=== PATIENT | male | born 1990 | race African-American/Black ===

== ENCOUNTER 2017-06-05 23:48 | Emergency (ER) | payer OTHER ==
[~2017-06-05] VITALS: Ht 162.6 cm; Wt 82.4 kg
[~2017-06-05 23:48] MED LIST: NAPROSYN500 MG PO; NOHOMEMEDS; TYLENOL W/COD1 COMBO PO; ULTRAM50 MG PO
[2017-06-06] MEDS ORDERED: TOBREX5 ML RIGHT EYE (01:54)
[2017-06-06] MEDS ORDERED: ERYTHROMYC1 APPLICAT RIGHT EYE (01:54)
[2017-06-06 02:18] VITALS: BP 154/82
== END 2017-06-06 02:18 | disposition home or self-care (01) ==
LOC: EXP 23:48 → EME 23:48 → EXP 06-06 02:18
DX: S05.01XA Injury of conjunctiva and corneal abrasion without foreign body, right eye, initial encounter (principal); F17.200 Nicotine dependence, unspecified, uncomplicated
CPT/HCPCS: 99281; 99284

== ENCOUNTER 2017-09-04 14:50 | Emergency (ER) | payer OTHER ==
[~2017-09-04] VITALS: Ht 162.6 cm; Wt 82.1 kg
[~2017-09-04 14:50] MED LIST changes: +ERYTHROMYC1 APPLICAT RIGHT EYE; +TOBREX5 ML RIGHT EYE
[2017-09-04] MEDS ORDERED: ERYTHROMYC1 APPLICAT BOTH EYES (16:10)
[2017-09-04 16:23] VITALS: BP 138/84
== END 2017-09-04 16:24 | disposition home or self-care (01) ==
LOC: EME → EDBD 14:50 → EME 16:24
DX: S05.02XA Injury of conjunctiva and corneal abrasion without foreign body, left eye, initial encounter (principal); W22.8XXA Striking against or struck by other objects, initial encounter; Y99.0 Civilian activity done for income or pay
CPT/HCPCS: 99281; 99284

== ENCOUNTER 2018-04-18 21:49 | Emergency (ER) | payer OTHER ==
[~2018-04-18] VITALS: Ht 162.6 cm; Wt 80.3 kg
[~2018-04-18 21:49] MED LIST changes: +ERYTHROMYC1 APPLICAT BOTH EYES
[2018-04-18 22:33] LABS: HEMATOCRIT 47.7 % (38.0-50.0); HEMOGLOBIN 16.3 G/DL (12.5-16.6); MCH 30.3 PG (29.0-34.0); MCHC 34.2 G/DL (30.0-36.0); MCV 88.7 FL (86-99); PLATELET COUNT 314 K/uL (156-360); RBC DIS.WIDTH-CV 13.2 % (11.8-14.6); RBC DIS.WIDTH-SD 43.4 % (39-53); RED BLOOD COUNT 5.38 M/uL (4.00-5.50); WHITE BLOOD COUNT 19.7 K/uL (4.1-10.2)
[2018-04-18 22:49] LABS: ALBUMIN 4.5 g/dL (3.2-4.8)
[2018-04-18 22:50] LABS: CHLORIDE 104 mEq/L (99-109); POTASSIUM 4.1 mEq/L (3.7-5.4); SODIUM 139 mEq/L (136-147)
[2018-04-18 22:52] LABS: GLUCOSE 123 mg/dL (70-99); TOTAL PROTEIN 7.4 g/dL (6.4-8.3)
[2018-04-18 22:54] LABS: TOTAL BILIRUBIN 0.3 mg/dL (0.0-1.0)
[2018-04-18 22:55] LABS: ALKALINE PHOSPHATASE 97 IU/L (3-129)
[2018-04-18 22:56] LABS: CREATININE 0.9 mg/dL (0.6-1.3); GFR ESTIMATE (CALCULATED) > 59 mL/min/ (58.99-99999)
[2018-04-18 22:57] LABS: AST (GOT) 20 IU/L (2-34); UREA NITROGEN (BUN) 10 mg/dL (9-23)
[2018-04-18 22:58] LABS: ALT (GPT) 25 IU/L (3-49)
[2018-04-18 22:59] LABS: LIPASE 10 U/L (1.0-51.0)
[2018-04-18 23:21] LABS: CREATINE KINASE 383 IU/L (1-294)
[2018-04-19 00:53] LABS: APPEARANCE SL.HAZY ((CLEAR)); BILIRUBIN NEGATIVE; BLOOD NEGATIVE; COLOR YELLOW ((YELLOW)); GLUCOSE (STRIP) NEGATIVE; KETONES NEGATIVE; LEUKOCYTES NEGATIVE; NITRITE NEGATIVE; PROTEIN (STRIP) 30; SPECIFIC GRAVITY 1.026 (1.000-1.030); UROBILINOGEN 0.2 MG/DL (0.2-1.0)
[2018-04-19 00:57] LABS: BACTERIA RARE /HPF; EPITHELIAL CELLS RARE /HPF; MUCUS 1+ /LPF; UCUL ADDED? YES
[2018-04-19] MEDS ORDERED: ZOFRAN ODT4 MG PO (02:30)
[2018-04-19 03:05] VITALS: BP 133/85
== END 2018-04-19 03:06 | disposition home or self-care (01) ==
LOC: EME 21:49
PROVIDERS: Physician Assistant
DX: T67.5XXA Heat exhaustion, unspecified, initial encounter (principal); X30.XXXA Exposure to excessive natural heat, initial encounter; R11.2 Nausea with vomiting, unspecified; F17.200 Nicotine dependence, unspecified, uncomplicated
CPT/HCPCS: 80053; 81003; 82550; 83690; 85027; 87086; 87651 90; 99281; 99285; J1885; J2405; J7030

== ENCOUNTER 2018-05-25 22:47 | Emergency (ER) | payer OTHER ==
[~2018-05-25] VITALS: Ht 167.6 cm; Wt 83.8 kg
[~2018-05-25 22:47] MED LIST changes: +ZOFRAN ODT4 MG PO
[2018-05-25] MEDS ORDERED: NAPROSYN500 MG PO (23:16)
[2018-05-26 00:02] VITALS: BP 137/74
== END 2018-05-26 00:03 | disposition home or self-care (01) ==
LOC: EME 22:47
DX: S46.912A Strain of unspecified muscle, fascia and tendon at shoulder and upper arm level, left arm, initial encounter (principal); X50.1XXA Overexertion from prolonged static or awkward postures, initial encounter; Y99.0 Civilian activity done for income or pay
CPT/HCPCS: 73030; 99281; 99283